=== PATIENT | male | born 1975 | race Caucasian/White ===

== ENCOUNTER → 2019-01-10 12:56 | Outpatient (CLI) | payer OTHER, SELFPAY ==
[2019-01-10 12:44] VITALS: BMI 31.1
--- NOTE | 2019-01-10 12:59 | RAD_ITS ---
STUDY: X-RAY - LUMBAR SPINE REASON FOR EXAM: Male, 43 years old. Back pain following a bending injury. TECHNIQUE: 5 view(s) of the lumbar spine were obtained including oblique views. COMPARISON: None FINDINGS: There is straightening of the normal lumbar lordosis. There is no substantial scoliosis. There is a normal alignment of the vertebrae. There is multilevel endplate spondylosis of the lumbar vertebrae. There is multi-level degenerative disc disease with multi-level disc space narrowing. The soft tissue structures are unremarkable. RAD/L/S Spine Min 4 Views IMPRESSION: Degenerative changes of the spine, as detailed above. Straightening of the normal lumbar lordosis. Electronically Signed: Galindo Angela, at 13:43 EDT , Service support ,
== END ==
LOC: HPRAD 12:57
PROVIDERS: Family Provider Family Medicine; PCP Family Medicine; Referring Provider Physician Assistant; Visit Provider Physician Assistant
DX: M54.5 Low back pain (principal)
CPT/HCPCS: 72110

== ENCOUNTER → 2019-02-26 07:28 | Outpatient (CLI) | payer OTHER, SELFPAY ==
[2019-02-25 08:29] VITALS: BMI 31.1
[2019-02-26 10:28] LABS: ALB/GLOB Ratio 0.9 RATIO (0.9-2.4); AST(SGOT) 36 U/L (15-37); Alanine Aminotransfer ALT/SGPT 64 U/L (16-61); Albumin, Serum 3.5 g/dL (3.2-5.0); Alkaline Phosphatase 134 U/L (45-117); Anion Gap 5 (5-15); BUN 18 mg/dL (7-18); BUN/Creat Ratio 21.1 RATIO (10-20); Calcium,Total 8.7 mg/dL (8.5-10.1); Chloride 108 mmol/L (98-107); Cholesterol 174 mg/dL (200); Creatinine, Serum 0.85 mg/dL (0.70-1.30); EST Glomerular Filtration Rate 103 mL/min (>60); Est Glom Filt Rate - Afr Amer 125 mL/min (>60); Globulin 3.9 g/dL (2.2-4.2); Glucose 101 mg/dL (74-106); High Density Lipoprotein 50 mg/dL; Protein, Total 7.4 g/dL (6.4-8.2); Sodium Level 142 mmol/L (136-145); Thyroid Stim Hormone (TSH) 0.91 uIU/mL (0.358-3.74); Triglycerides 124 mg/dL; Very Low Density Lipoprotein 25 mg/dL (5-40)
== END ==
PROVIDERS: Family Provider Family Medicine; PCP Family Medicine; Referring Provider Nurse Practitioner Family; Visit Provider Nurse Practitioner Family
DX: Z00.00 Encounter for general adult medical examination without abnormal findings (principal)
CPT/HCPCS: 36415; 80053; 80061; 84443

== ENCOUNTER → 2019-03-13 07:06 | Outpatient (CLI) | payer OTHER, SELFPAY ==
[2019-02-25 08:29] VITALS: BMI 31.1
--- NOTE | 2019-03-13 07:08 | MRI_ITS ---
STUDY: MRI LUMBAR SPINE WITHOUT CONTRAST REASON FOR EXAM: Male, 43 years old. Low back pain, leg pain and radiculopathy. TECHNIQUE: Standardized fat and water weighted pulse sequences were obtained in the sagittal and axial planes. COMPARISON: None FINDINGS: T12-L1: Normal endplates. Normal disc height, hydration and morphology. Normal bilateral facet joints. Normal central canal and bilateral lateral recesses. Normal bilateral intervertebral neural foramina. Normal lumbar lordosis. There is no substantial scoliosis. Normal conus medullaris that terminates at the T12/L1. L1-2: Normal endplates. Normal disc height, hydration and morphology. Normal bilateral facet joints. Normal central canal and bilateral lateral recesses. Normal bilateral intervertebral neural foramina. L2-3: Mild bilateral facet hypertrophy with fluid in the facet joints consistent with instability moderate ligament flavum hypertrophy. 2 mm retrolisthesis of L2 on L3 with a mild broad disc protrusion produces moderate spinal stenosis and moderate bilateral neural foraminal stenosis. L3-4: Mild bilateral facet hypertrophy with fluid in the facet joints consistent with instability moderately flavum hypertrophy. 2 mm retrolisthesis of L3 on L4 with a mild broad disc protrusion produces mild spinal stenosis and mild bilateral neural foraminal stenosis. L4-5: Mild broad disc protrusion produces mild spinal stenosis and mild bilateral neural foraminal stenosis. L5-S1: Partial sacralization of L5 with a rheumatoid disc space without spinal stenosis or neural foraminal stenosis. Normal visualized sacral ala. Normal visualized paraspinous soft tissue structures. MRI/Spine Lumbar (Routine) IMPRESSION: Multilevel degenerative changes, as described above. Electronically Signed: Chester Black MD at 10:58 EDT Tel , Service support ,
== END ==
PROVIDERS: Family Provider Family Medicine; PCP Family Medicine; Referring Provider Chiropractor; Visit Provider Chiropractor
DX: M51.36 Other intervertebral disc degeneration, lumbar region (principal)
CPT/HCPCS: 72148

== ENCOUNTER → 2019-07-02 14:53 | Outpatient (CLI) | payer OTHER, SELFPAY ==
[2019-07-02 14:38] VITALS: BMI 31.1
--- NOTE | 2019-07-02 14:58 | RAD_ITS ---
STUDY: X-RAY CHEST REASON FOR EXAM: Male, 43 years old. COUGH, SHORTNESS OF BREATH TECHNIQUE: PA and lateral views of the chest. COMPARISON: Comparison is made with prior examination dated May 25, 2015. FINDINGS: Mild increased markings in the left lower lobe suggestive of early left basilar infiltrate. There is no demonstrated pleural abnormality. Normal size heart. Normal mediastinum and shi. Normal visualized pulmonary arteries. Normal visualized aortic arch and descending thoracic aorta. There are diffuse degenerative changes of the visualized thoracic spine. Normal visualized ribs, clavicles, and shoulders. There is no demonstrated abnormality of the visualized soft tissue structures of the upper abdomen. RAD/Chest PA and Lateral IMPRESSION: Increased markings in the left lower lobe suggestive of early left lower lobe infiltrate. Electronically Signed: Galindo Angela, at 15:14 EST , Service support ,
== END ==
PROVIDERS: PCP Family Medicine; Referring Provider Physician Assistant Surgical; Visit Provider Physician Assistant Surgical
DX: J20.9 Acute bronchitis, unspecified (principal)
CPT/HCPCS: 71046

== ENCOUNTER → 2019-07-09 09:53 | Outpatient (CLI) | payer OTHER, SELFPAY ==
[2019-07-02 14:38] VITALS: BMI 31.1
--- NOTE | 2019-07-09 09:59 | RAD_ITS ---
STUDY: X-RAY CHEST REASON FOR EXAM: Male, 43 years old. SOB, COUGH, ANTERIOR RIGHT SIDED CP X1 MONTH, RECENT PNEUMONIA AND BRONCHITIS DX TECHNIQUE: 2 views COMPARISON: Prior chest radiograph of July 02, 2019, May 25, 2015. FINDINGS: The right lung remains expanded and clear. Improving infiltrate in the left lower lobe noting that a smaller discrete linear opacity was present in this area on a preceding exam of May 25, 2015. Normal size heart. Normal mediastinum and shi. Normal visualized pulmonary arteries. Normal visualized aortic arch and descending thoracic aorta. Mild degenerative changes of the thoracic spine. Normal visualized ribs, clavicles, and shoulders. There is no demonstrated abnormality of the visualized soft tissue structures of the upper abdomen. RAD/Chest PA and Lateral IMPRESSION: Improving infiltrate in the left lower lung zone from prior exam of July 02, 2019. Note that the superior border of this infiltrate is a chronic linear opacity present on the preceding chest May 25, 2015. No acute findings or changes on the right. Negative for new consolidation, pleural effusion or cardiomegaly. Electronically Signed: Sarah Elias MD at 16:15 EST , Service support ,
== END ==
PROVIDERS: PCP Family Medicine; Referring Provider Family Medicine; Visit Provider Family Medicine
DX: R06.02 Shortness of breath (principal)
CPT/HCPCS: 71046

== ENCOUNTER → 2019-08-01 11:26 | Outpatient (CLI) | payer OTHER, SELFPAY ==
[2019-07-02 14:38] VITALS: BMI 31.1
--- NOTE | 2019-08-01 11:29 | RAD_ITS ---
EXAM DESCRIPTION: PA and lateral chest CLINICAL HISTORY: 43 years Male, cough since the beginning of June, some right anterior chest pain cough since the beginning of June, some right anterior chest pain COMPARISON: Previous chest x-ray obtained On 07/09/2019 FINDINGS: The thorax is intact. The heart and mediastinum appear to be within normal limits. The lungs appear to be well areated without evidence of pneumonic consolidation or pleural effusion. RAD/Chest PA and Lateral IMPRESSION: Normal PA and lateral chest Electronically Signed: Lionel Cline, at 11:50 EST Tel , Service support ,
== END ==
LOC: MTRAD 11:27
PROVIDERS: PCP Family Medicine; Referring Provider Family Medicine; Visit Provider Family Medicine
DX: R05 Cough (principal)
CPT/HCPCS: 71046

== ENCOUNTER → 2019-09-16 08:21 | Outpatient (CLI) | payer OTHER, SELFPAY ==
[2019-07-02 14:38] VITALS: BMI 31.1
--- NOTE | 2019-09-16 08:25 | CT_ITS ---
STUDY: CT MAXILLOFACIAL SINUSES REASON FOR EXAM: Male, 43 years old. SINUSITIS, DEVIATED SEPTUM WORSE ON THE RIGHT RADIATION DOSAGE (If Supplied By Facility): CTDIvol = ( 33.06 ) mGy, DLP = ( 846.25 ) mGycm TECHNIQUE: The patient was scanned in a multi detector CT scanner. High resolution axial imaging was performed without the administration of intravenous contrast material. Sagittal and coronal images were reconstructed. Individualized dose optimization techniques were used for this CT. COMPARISON: None. FINDINGS: Small bilateral benign-appearing submental lymph nodes. FRONTAL SINUSES: Minimal mucosal thickening of the frontal sinuses. ETHMOIDAL SINUSES: Mucosal thickening of the ethmoid sinuses bilaterally worse on the right side. MAXILLARY SINUSES: Partial opacification of the right maxillary sinus. Minimal mucosal thickening at the base of the left maxillary sinus. SPHENOIDAL SINUSES: Nearly 1 cm x 1.2 cm polyp or retention cyst in the anterior aspect of the left sphenoid sinus. Mild degree of mucosal thickening of the right sphenoid sinus. Compromise of the right ostiomeatal complex due to mucosal hypertrophy. Normal bilateral middle turbinates. Normal bilateral inferior turbinates. There is a right sided nasal septal deviation with a right sided nasal septal spur. There is patency of the bilateral nasal airways. The visualized osseous structures are normal. The visualized bilateral orbital contents are normal. CT/Sinus/Facial Bone IMPRESSION: Pansinusitis. Electronically Signed: Galindo Angela, at 9:26 EDT , Service support ,
== END ==
LOC: CT 08:23
PROVIDERS: PCP Family Medicine; Referring Provider Otolaryngology; Visit Provider Otolaryngology
DX: J32.9 Chronic sinusitis, unspecified (principal)
CPT/HCPCS: 70486

== ENCOUNTER → 2019-10-22 12:17 | Outpatient (CLI) | payer OTHER, SELFPAY ==
[2019-07-02 14:38] VITALS: BMI 31.1
== END ==
PROVIDERS: PCP Family Medicine; Referring Provider Otolaryngology; Visit Provider Otolaryngology
DX: Z11.59 Encounter for screening for other viral diseases (principal)
CPT/HCPCS: 87635; G2023; U0004

== ENCOUNTER → 2019-12-19 09:49 | Outpatient (CLI) | payer OTHER, SELFPAY ==
[2019-07-02 14:38] VITALS: BMI 31.1
== END ==
PROVIDERS: PCP Family Medicine; Referring Provider Otolaryngology; Visit Provider Otolaryngology
DX: Z11.59 Encounter for screening for other viral diseases (principal)
CPT/HCPCS: 87635; G2023; U0003

== ENCOUNTER → 2019-12-25 15:09 | Outpatient (CLI) | payer OTHER, SELFPAY ==
[2019-07-02 14:38] VITALS: BMI 31.1
--- NOTE | 2019-12-25 | ETH_PTH ---
PATIENT: BALDEMAR SAMUELS LOC: [facility] U#:[id number] AGE/SX: 49/M ROOM: RE12/25/[address]: Dr. Bulmaro Mosqueda MD : 1975 BED: DIS: SPEC #: [id number] RECD: 12/25/19 14:56 STATUS: TANYA EMMY #: [id number] MEL: 12/25/19 00:[address]: Bulmaro Mosqueda DEPT: SURGICAL PATHOLOGY RECD BY: Rusty Cox ENTERED: 12/26/19 10:26 SP TYPE: ETH TISS OTHR DR: Dr. Roberto Lacey MD [facility] Tissues: A - Ethmoid sinus, NOS B - Ethmoid sinus, NOS Procedures: Surgery Specimen Level IV HEADER OPERATION: Rhinoplasty, functional endoscopic sinus surgery PRE-OP DIAGNOSIS: Nasal congestion, chronic sinusitis TISSUE SUBMITTED: A - Right sinus contents, B - Left sinus contents MICROSCOPIC DIAGNOSIS A. Right sinus contents: Fragments of respiratory mucosa with chronic inflammation. B. Left sinus contents: Fragments of respiratory mucosa with chronic inflammation and bone. SJ:esmer 12/27/19 MICROSCOPIC DESCRIPTION Slides are reviewed. GROSS DESCRIPTION A - Received in fixative is one container labeled with the patient's name and designated right sinus contents. The specimen consists of multiple irregular fragments of cerda tissue that in aggregate measure 0.6 x 0.2 x 0.1 cm. The specimen is totally submitted in one cassette. B - Received in fixative is one container labeled with the patient's name and designated left sinus contents. The specimen consists of multiple irregular fragments of cerda tissue that in aggregate measure 2.5 x 2 x 0.1 cm. The specimen is totally submitted in one cassette. / AM:esmer 12/26/19 TC:3 [facility]: [id number] x2
== END ==
PROVIDERS: PCP Family Medicine; Referring Provider Otolaryngology; Visit Provider Otolaryngology
DX: J32.9 Chronic sinusitis, unspecified (principal); R09.81 Nasal congestion
CPT/HCPCS: 88305

== ENCOUNTER 2020-10-13 07:29 | Emergency (ER) | payer OTHER, SELFPAY ==
[2019-07-02 14:38] VITALS: BMI 31.1
[2020-10-13 07:30] VITALS: BP 141/91; PULSE 63; RESP 15; TEMP 36.2; O2SAT 100; BMI 31.8
--- NOTE | 2020-10-13 07:38 | CT_ITS ---
STUDY: CT ABDOMEN AND PELVIS WITHOUT CONTRAST REASON FOR EXAM: Male, 44 years old. Left flank pain. RADIATION DOSAGE (If Supplied By Facility): CTDIvol = ( 19.27 ) mGy, DLP = ( 1049.55 ) mGycm TECHNIQUE: Transaxial images were obtained from the dome of the diaphragm to the symphysis pubis without oral contrast, and without intravenous contrast. Sagittal and coronal images were reconstructed. Individualized dose optimization techniques were used for this CT. COMPARISON: None. FINDINGS: The visualized lung bases are unremarkable. The visualized portions of the heart are within normal limits. Normal liver. Normal gallbladder and extrahepatic biliary system. Normal spleen. Normal pancreas. Normal bilateral adrenal glands. Normal right kidney. Normal left kidney. Normal visualized stomach. Normal small intestine. There are scattered colonic diverticula consistent with diverticulosis. The appendix is visualized and appears normal. There is scattered atherosclerotic calcification of the abdominal aorta, without a demonstrated aneurysm. Normal inferior vena cava. Normal retroperitoneum. Normal urinary bladder. There is a small umbilical hernia containing fat. There are degenerative changes of the visualized lumbar spine. CT/Abdomen/Pelvis without Cont IMPRESSION: No acute abnormality is seen. Electronically Signed: Galindo Angela MD at 9:03 EDT , Service support ,
--- NOTE | 2020-10-13 07:39 | EX.ED.DYSGE1 ---
HPI History of Present Illness Chief Complaint: Flank Pain Informant: patient Narrative Narrative: 44-year-old male states that he was in his usual state of health this morning when he went to the bathroom and has severe sharp stabbing pain in the left lower quadrant of his abdomen. He states that the severity lasted about 2024 minutes during which time he was nauseous and sweaty. He states that as he pulled into the emergency department parking lot he started to feel better. He denies any history of kidney stones. He denies any melena/hematochezia. Normal bowel movement this morning. No fevers. Pain did not radiate to the flank. [facility] Medical History Depression Environmental allergies GERD (gastroesophageal reflux disease) Home Medications loratadine 10 mg PO DAILY 03/02/15 [History Last Taken Unknown] jylvmlhhqgcj-uihexuqk-jkffaw 1 ea PO DAILY 03/02/15 [History Last Taken Unknown] omeprazole 20 mg PO DAILY 03/02/15 [History Last Taken Unknown] sertraline 100 mg PO DAILY 03/02/15 [History Last Taken Unknown] cyclobenzaprine 10 mg tablet 10 mg PO TID PRN #20 tab 01/10/19 [Rx Last Taken Unknown] ibuprofen 800 mg tablet 800 mg PO TID #30 tab 01/10/19 [Rx Last Taken Unknown] albuterol sulfate 90 mcg/actuation aerosol inhaler 2 puff INHALATION Q6H PRN #6.7 g 07/02/19 [Rx Last Taken Unknown] azithromycin 250 mg tablet See Rx Instructions PO .COMPLEX #6 tab 07/02/19 [Rx Last Taken Unknown] guaifenesin 1,200 mg tablet, extended release 12 hr 1,200 mg PO BID 07/02/19 [History Last Taken Unknown] Allergy/AdvReac Type Severity Reaction Status Date / Time No Known Allergies Allergy Verified 10/13/20 07:31 Family History Other Anxiety Cancer Heart disease Hypertension Melanoma Surgical History History of arthroscopic knee surgery History of wisdom tooth extraction Social History Smoking Status: Never smoker alcohol intake: current alcohol intake frequency: 0-2 drinks per day substance use type: does not use what type of physical activity do you participate in: walking and weight training frequency: 3-4 times per week ROS ROS ED Constitutional Constitutional ED: Denies chills or weight loss Eyes Eyes: Denies change in vision or diplopia ENT ENT ED: Denies ear pain, rhinorrhea or sore throat Cardiovascular Cardiovascular: Denies chest pain, orthopnea, palpitations or racing heartbeat Respiratory/Chest Respiratory/Chest: Denies cough, dyspnea or orthopnea Gastrointestinal Gastrointestinal: Reports abdominal pain and nausea; Denies diarrhea or vomiting Genitourinary Genitourinary ED: Denies dysuria, hematuria or urinary frequency Musculoskeletal Musculoskeletal: Denies arthralgias or myalgias Integumentary Denies abscess or rash Neurologic Neurologic: Denies headache(s) or weakness Psychiatric Psychiatric: Denies anxiety, depression, suicidal ideation or suicidal thoughts Endocrine Endocrinology: Denies polydipsia, polyphagia or polyuria Allergic/Immunologic Allergic/Immunologic ED: Denies mouth swelling, tongue swelling or urticaria EXAM Physical Exam Const Vital Signs: 10/13/20 07:30 Temperature 97.2 F L Temperature Source Temporal Pulse Rate 63 Respiratory Rate 15 Blood Pressure 141/91 H Blood Pressure Mean 107 Pulse Ox 100 Oxygen Delivery Method Room Air Positive well nourished and well developed General Appearance ED: well developed HEENT Reports normocephalic, head/scalp atraumatic and moist mucous membranes Eyes PERRL and EOMs intact bilaterally Neck no lymphadenopathy, supple and no JVD Resp normal respiratory effort and clear to auscultation bilaterally Cardio regular rate, regular rhythm and no murmurs GI normal to inspection, nondistended, normoactive bowel sounds and non-tender Palpation: soft Back/Spine no CVA tenderness and normal ROM Extremity normal to inspection General Extremety ED: Negative for edema General Extremity: Negative for edema Neuro oriented x3 and CN's II-XII intact bilaterally Sensorium / Orientation: alert Motor Exam: strength 5/5 throughout Psych mental status grossly normal Mood & Affect: Negative for depressed or tearful Skin no rashes or lesions noted and no wounds MDM MDM MDM Narrative Medical decision making narrative: Urinalysis shows 25-50 red blood cells.Blood sugar noted to be 166 and he does not have a diagnosis of diabetes. He was advised to follow-up with his primary care physician regarding this. Creatinine normal 0.88. Upon my review of the CT of the abdomen pelvis without contrast demonstrates a punctate kidney stone in the bladder.I suspect that this small stone was the source of his pain. He received 30 mg of Toradol IV. Patient will follow up with primary care return if worsening or concerns Lab Data Attestation: I reviewed the patient's lab results. Labs: Laboratory Results - last 24 hr 10/13/20 10/13/20 10/13/20 07:50 07:50 08:11 WBC 6.9 RBC 4.66 Hgb 13.2 Hct 42.2 MCV 90.6 MCH 28.3 MCHC 31.3 L RDW Std Deviation 48.2 H RDW Coeff of Sina 14.6 Plt Count 280 MPV 9.9 Immature Gran % (Auto) 0.100 Neut % (Auto) 47.9 Lymph % (Auto) 37.0 [place] % (Auto) 8.8 Eos % (Auto) 5.2 H Baso % (Auto) 1.0 Absolute Neuts (auto) 3.3 Absolute Lymphs (auto) 2.56 Nucleated RBC % 0 Sodium 139 Potassium 3.9 Chloride 108 H Carbon Dioxide 29.0 Anion Gap 2 L BUN 20 H Creatinine 0.88 Estim Creat Clear Calc 115.13 Est GFR (MDRD) Af Amer 119 Est GFR (MDRD) Non-Af 98 BUN/Creatinine Ratio 22.6 H Glucose 166 H Calcium 9.1 Urine Color Yellow Urine Clarity Sl. Cloudy Urine pH 5.0 Ur Specific [place] 1.025 Urine Protein 15 H Urine Glucose (UA) Normal Urine Ketones Negative Urine Occult Blood 250 H Urine Nitrite Negative Urine Bilirubin Negative Urine Urobilinogen Normal Ur Leukocyte Esterase Negative Urine RBC 25-50 SEEN Urine WBC 0 SEEN Ur Squamous Epith Cells 0-5 SEEN Urine Bacteria 0 SEEN Urine Mucus 1+ Radiography Diagnostic Testing: Radiology Impression Abdomen/Pelvis CT 10/13/20 07:38 IMPRESSION: No acute abnormality is seen. Electronically Signed: Galindo Angela MD at 9:03 EDT , Service support , Discharge Plan Triage Chief Complaint: Flank Pain ED Provider: Den Jones Dx/Rx/DC Orders Clinical Impression: Kidney stone on left side, Abdominal pain, acute Instructions: ED Kidney Stone, Passed Prescriptions: No Action ibuprofen 800 mg tablet 800 mg PO TID Qty: 30 RF: 0 cyclobenzaprine 10 mg tablet 10 mg PO TID PRN (Reason: muscle spasm) Qty: 20 RF: 0 guaifenesin [Mucinex] 1,200 mg tablet extended release 12hr 1,200 mg PO BID RF: 0 azithromycin 250 mg tablet See Rx Instructions PO .COMPLEX Qty: 6 RF: 0 albuterol sulfate 90 mcg/actuation HFA aerosol inhaler 2 puff INHALATION Q6H PRN (Reason: shortness of breath or wheezing) Qty: 6.7 RF: 0 sertraline 100 MG tablet 100 mg PO DAILY RF: 0 omeprazole 20 MG capsule 20 mg PO DAILY RF: 0 loratadine 10 MG tablet 10 mg PO DAILY RF: 0 ojreciehsowk-uyyhmedz-fvbgfg 1 EACH tablet 1 ea PO DAILY RF: 0 Primary Care Provider: Roberto Lacey Referrals: Roberto Lacey MD [Primary Care Provider] - 1 Week (Please follow-up with primary care. It was noted today that your blood sugar was 166.) Disposition Disposition: Home, self care
[2020-10-13] MEDS: Ketorolac 30 MG/ML Syringe IV (07:47)
[2020-10-13 07:57] LABS: Absolute Lymphocyte Count 2.56 X10^3/uL (0.83-4.51); Absolute Neutrophil Count 3.3 X10^3/uL (2.0-7.7); Basophil# 0.07 X10^3/uL; Eosinophil# 0.36 X10^3/uL; Eosinophils% 5.2 % (0-5); Hematocrit 42.2 % (40-54); Hemoglobin 13.2 g/dL (13.0-16.5); Lymphocyte # 2.56 X10^3/ul (0.83-4.51); Mean Corp Hgb Conc 31.3 g/dL (32-36); Mean Corpuscular Hgb 28.3 pg (27.0-32.0); Mean Corpuscular Volume 90.6 fL (80-94); Mean Platelet Vol. 9.9 fl (6.2-12.0); Monocyte# 0.61 X10^3/uL; Monocyte% 8.8 % (0-10); NRBC Flagged by Analyzer 0 % (0-5); Neutrophil # 3.31 X10^3/uL (2.7-7.7); Neutrophil % 47.9 % (47-70); Platelet Count 280 K/mm3 (150-450); RBC Distribution Width CV 14.6 % (11.6-14.6); RBC Distribution Width SD 48.2 fl (35.1-43.9); Red Blood Count 4.66 M/mm3 (4.6-6.2); White Blood Count 6.9 K/mm3 (4.4-11.0)
[2020-10-13 08:09] LABS: Anion Gap 2 (5-15); BUN 20 mg/dL (7-18); BUN/Creat Ratio 22.6 RATIO (10-20); Calcium,Total 9.1 mg/dL (8.5-10.1); Chloride 108 mmol/L (98-107); Creatinine, Serum 0.88 mg/dL (0.70-1.30); EST Glomerular Filtration Rate 98 mL/min (>60); Est Glom Filt Rate - Afr Amer 119 mL/min (>60); Estimated Creatinine Clearance 115.13 ml/min; Glucose 166 mg/dL (74-106); Potassium 3.9 mmol/L (3.5-5.1); Sodium Level 139 mmol/L (136-145)
[2020-10-13 08:15] LABS: Bacteria 0 SEEN /hpf (None Seen); White Blood Cells 0 SEEN /hpf (0-5)
[2020-10-13 08:18] LABS: Color, Urine Yellow (Yellow); Glucose, Dipstick Normal (Normal); Ketone-Dipstick Negative (Negative); Leukocyte Esterase-Dipstick Negative /ul (Negative); Nitrite-Dipstick Negative (Negative); Occult Blood-Urine 250 /ul (Negative); Protein-Dipstick 15 mg/dl (Negative); Specific Gravity, Urine 1.025 (1.002-1.030); Urine Bilirubin Dipstick Negative (Negative); Urine Clarity Sl. Cloudy (Clear); Urine Urobilinogen Normal (Normal)
[2020-10-13 08:24] LABS: Mucous, Urine 1+ /hpf (<or=2+); Red Blood Cells-Urine 25-50 SEEN /hpf (0-5); Squamous Epithelial Cells - UA 0-5 SEEN /hpf (0-5)
[2020-10-13 09:23] VITALS: BP 111/62; PULSE 78; RESP 16; O2SAT 99
== END 2020-10-13 09:24 | disposition home or self-care (01) ==
PROVIDERS: Emergency Provider Emergency Medicine; PCP Family Medicine
DX: N20.0 Calculus of kidney (principal); R10.32 Left lower quadrant pain
CPT/HCPCS: 74176; 80048; 81001; 85025; 96374; 99283; A4216

== ENCOUNTER → 2021-03-31 07:11 | Outpatient (CLI) | payer OTHER, SELFPAY ==
[2021-03-31 10:26] LABS: Anion Gap 7 (5-15); BUN 20 mg/dL (7-18); BUN/Creat Ratio 24.2 RATIO (10-20); Calcium,Total 8.9 mg/dL (8.5-10.1); Chloride 108 mmol/L (98-107); Cholesterol 174 mg/dL (200); Creatinine, Serum 0.82 mg/dL (0.70-1.30); EST Glomerular Filtration Rate 106 mL/min (>60); Est Glom Filt Rate - Afr Amer 128 mL/min (>60); Glucose 107 mg/dL (74-106); High Density Lipoprotein 48 mg/dL; Potassium 4.3 mmol/L (3.5-5.1); Sodium Level 142 mmol/L (136-145); Triglycerides 107 mg/dL; Very Low Density Lipoprotein 21 mg/dL (5-40)
[2021-03-31 12:16] LABS: Vitamin D,25 Hydroxy 26.7 ng/mL
== END ==
PROVIDERS: PCP Family Medicine; Referring Provider Family Medicine; Visit Provider Family Medicine
DX: Z00.00 Encounter for general adult medical examination without abnormal findings (principal)
CPT/HCPCS: 36415; 80048; 80061; 82306

== ENCOUNTER → 2023-03-03 | Outpatient (CLI) | payer OTHER, SELFPAY ==
[2023-03-03 10:39] LABS: Anion Gap 4 (5-15); BUN 17 mg/dL (7-18); BUN/Creat Ratio 20.2 RATIO (10-20); Calcium,Total 9.4 mg/dL (8.5-10.1); Chloride 106 mmol/L (98-107); Cholesterol 185 mg/dL (200); Creatinine, Serum 0.84 mg/dL (0.70-1.30); EST Glomerular Filtration Rate 103 mL/min (>60); Est Glom Filt Rate - Afr Amer 124 mL/min (>60); Glucose 113 mg/dL (74-106); High Density Lipoprotein 56 mg/dL; PSA,Total- Diagnostic 0.66 ng/mL (0.0-4.0); Potassium 4.2 mmol/L (3.5-5.1); Sodium Level 139 mmol/L (136-145); Triglycerides 104 mg/dL; Very Low Density Lipoprotein 21 mg/dL (5-40)
== END | disposition home or self-care (01) ==
LOC: MTLAB 08:39
PROVIDERS: PCP Family Medicine; Referring Provider Family Medicine; Visit Provider Family Medicine
DX: Z00.00 Encounter for general adult medical examination without abnormal findings (principal)
CPT/HCPCS: 36415; 80048; 80061; 84153

== ENCOUNTER → 2024-03-01 | Outpatient (CLI) | payer OTHER, SELFPAY ==
[2024-03-01 11:19] LABS: Anion Gap 4 (5-15); BUN 20 mg/dL (7-18); BUN/Creat Ratio 27.9 RATIO (10-20); Calcium,Total 9.1 mg/dL (8.5-10.1); Chloride 108 mmol/L (98-107); Cholesterol 145 mg/dL (200); Creatinine, Serum 0.72 mg/dL (0.70-1.30); EST Glomerular Filtration Rate 124 mL/min (>60); Est Glom Filt Rate - Afr Amer 149 mL/min (>60); Glucose 97 mg/dL (74-106); High Density Lipoprotein 56 mg/dL; Potassium 4.1 mmol/L (3.5-5.1); Sodium Level 141 mmol/L (136-145); Triglycerides 84 mg/dL; Very Low Density Lipoprotein 17 mg/dL (5-40)
== END | disposition home or self-care (01) ==
LOC: MTLAB 07:35
PROVIDERS: PCP Family Medicine; Referring Provider Family Medicine; Visit Provider Family Medicine
DX: Z00.00 Encounter for general adult medical examination without abnormal findings (principal)
CPT/HCPCS: 36415; 80048; 80061